=== PATIENT | female | born 1980 | race Caucasian/White ===

== ENCOUNTER 2017-06-16 20:35 | Emergency (ER) | payer MEDICAID ==
--- NOTE | 2017-06-16 20:41 | EDPHY ---
H & P HPI/ROS: HPI CHIEF COMPLAINT: Red Spot Back of Right Arm, bug bite HISTORY OF PRESENT ILLNESS: This patient very pleasant 36-year-old female no significant medical history presents emergency room with a bug bite to the right posterior arm. States this happened last night. Since then it has been itching. Swelling. Denies fever. Denies joint pain. She thinks it was a mosquito. Denies tick bite. Decided come the emergency room as the redness and swelling and itchiness has gotten worse. No fever. Past Medical History: No medical history Past Surgical History: No surgical history Social History: Denies daily use drugs alcohol tobacco products Family History: Noncontributory ROS REVIEW OF SYSTEMS: A comprehensive 10 point review of systems is otherwise negative aside from elements mentioned in the history of present illness. Exam Constitutional triage nursing summary reviewed, vital signs reviewed, awake/ alert. Eyes normal conjunctivae and sclera, EOMI, PERRLA. HENT normal inspection, atraumatic, moist mucus membranes, no epistaxis, neck supple/ no meningismus, no raccoon eyes. Respiratory clear to auscultation bilaterally, normal breath sounds, no respiratory distress, no wheezing. Cardiovascular rate normal, regular rhythm, no murmur, no edema, distal pulses normal. Gastrointestinal soft, non-tender, no rebound, no guarding, normal bowel sounds, no distension, no pulsatile mass. Genitourinary no CVA tenderness. Musculoskeletal no midline vertebral tenderness, full range of motion, no calf swelling, no tenderness of extremities, no meningismus, good pulses, neurovascularly intact. Skin right posterior arm there is an area of 5 cm x 5 site of cm circumferential with no central clearing of erythema that appears to be inflamed , no evidence of cellulitis, no evidence of abscess, nontender, it is pruritic. Neurologic awake, alert and oriented x 3, AAOx3, moves all 4 extremities equally, motor intact, sensory intact, CN II-XII intact, normal cerebellar, normal vision, normal speech. Psychiatric normal mood/affect. Heme/Lymph/Immune no lymphadenopathy. Differential Diagnosis: Includes but is not limited to in a particular order, bug bite, local inflammation bug bite, doubt cellulitis Medical Decision Making: Recommend cool compresses Benadryl for itching. Watch closely for gets worse including swelling, including drainage, fever, spreading she still be re-evaluated. She understands return emergency room she sees any this. Cool compresses over the next 48 hours. Benadryl for itching. Return to the ER if any worsening symptoms. Source: Patient - Medical/Surgical History Hx Asthma: No Hx Chronic Respiratory Disease: No Hx Diabetes: No Hx Cardiac Disease: No Hx Renal Disease: No Hx Cirrhosis: No Hx Alcoholism: No Hx HIV/AIDS: No Hx Splenectomy or Spleen Trauma: No Other PMH: denies - Social History Smoking Status: Never smoked Allergies/Adverse Reactions: epinephrine Allergy (Verified 04/23/16 15:52) Home Medications: Medication Instructions Recorded predniSONE 1 dose PO DAILY #18 tablet 04/23/16 Departure - Departure Disposition: Home, Routine, Self-Care Clinical Impression: Bug bite Qualifiers: Encounter type: initial encounter Qualified Code(s): W57.XXXA - Bitten or stung by nonvenomous insect and other nonvenomous arthropods, initial encounter Condition: Good Instructions: Insect Bite or Sting (ED) Additional Instructions: 1. Cool compresses for the next 24-48 hours. 2. Benadryl for itching. 3. Return emergency room if there is any worsening symptoms questions or concerns. This includes fever, spreading rash, worsening pain or any questions or concerns. Referrals: JAY SMITH,. [Primary Care Provider] - As per Instructions
[2017-06-16 20:52] VITALS: BP 123/78; PULSE 72; RESP 16; TEMP 98.4; O2SAT 96
== END 2017-06-16 21:03 | disposition home or self-care (01) ==
LOC: CED 20:35
DX: S40.861A Insect bite (nonvenomous) of right upper arm, initial encounter (principal); W57.XXXA Bitten or stung by nonvenomous insect and other nonvenomous arthropods, initial encounter